=== PATIENT | male | born 1990 | race Caucasian/White ===

== ENCOUNTER 2018-01-28 22:02 | Emergency (ER) | payer SELFPAY ==
--- NOTE | 2018-01-29 01:55 | EDPHYS ---
Physician Documentation [facility] Name: Rusty Leigh Age: 28 yrs Sex: Male : 1990 Arrival Date: 01/28/2018 Time: 22:08 Bed 23 Private MD: ED Physician Sky Olivera HPI: 01/29 02:00 This 28 yrs old Male presents to ER via Ambulatory with complaints of Boil On pm1 Neck. 02:00 the patient presents with a swollen area of the right lateral aspect of neck. pm1 Description: raised. Onset: The symptoms/episode began/occurred 3 day(s) ago. Possible cause(s): unknown. Associated signs and symptoms: Pertinent negatives: discharge, drainage, fever. Modifying factors: the symptoms are alleviated by nothing, the symptoms are aggravated by nothing. Severity of symptoms: in the emergency department the symptoms are actually worse. The patient has experienced similar episodes in the past, a few times. The patient has not recently seen a physician. Historical: - Allergies: 01/28 23:02 No Known Allergies; ea - Home Meds: 23:02 None [Active]; ea - PMHx: 23:02 None; ea - PSHx: 23:02 None; ea - Immunization history:: Adult Immunizations up to date. - Ebola Screening: : No symptoms or risks identified at this time. - Social history:: Smoking status: unknown. ROS: 01/29 02:00 Constitutional: Negative for fever, chills, and weight loss, Eyes: Negative for injury, pm1 pain, redness, and discharge, ENT: Negative for injury, pain, and discharge, Neck: Negative for injury, pain, and swelling, Cardiovascular: Negative for chest pain, palpitations, and edema, Respiratory: Negative for shortness of breath, cough, wheezing, and pleuritic chest pain, Abdomen/GI: Negative for abdominal pain, nausea, vomiting, diarrhea, and constipation, Back: Negative for injury and pain, MS/Extremity: Negative for injury and deformity. Neuro: Negative for headache, weakness, numbness, tingling, and seizure. Skin: Positive for cellulitis, of the right lateral aspect of neck. Exam: 02:00 Constitutional: This is a well developed, well nourished patient who is awake, alert, pm1 and in no acute distress. Head/Face: Normocephalic, atraumatic. Eyes: Pupils equal round and reactive to light, extra-ocular motions intact. Lids and lashes normal. Conjunctiva and sclera are non-icteric and not injected. Cornea within normal limits. Periorbital areas with no swelling, redness, or edema. ENT: Nares patent. No nasal discharge, no septal abnormalities noted. Tympanic membranes are normal and external auditory canals are clear. Oropharynx with no redness, swelling, or masses, exudates, or evidence of obstruction, uvula midline. Mucous membranes moist. Neck: Trachea midline, no thyromegaly or masses palpated, and no cervical lymphadenopathy. Supple, full range of motion without nuchal rigidity, or vertebral point tenderness. No Meningismus. Chest/axilla: Normal chest wall appearance and motion. Nontender with no deformity. No lesions are appreciated. Cardiovascular: Regular rate and rhythm with a normal S1 and S2. No gallops, murmurs, or rubs. Normal PMI, no JVD. No pulse deficits. Respiratory: Lungs have equal breath sounds bilaterally, clear to auscultation and percussion. No rales, rhonchi or wheezes noted. No increased work of breathing, no retractions or nasal flaring. Abdomen/GI: Soft, non-tender, with normal bowel sounds. No distension or tympany. No guarding or rebound. No evidence of tenderness throughout. Back: No spinal tenderness. No costovertebral tenderness. Full range of motion. 02:00 Skin: Appearance: normal except for affected area, abscess, not appreciated, cellulitis, on the right lateral aspect of neck, Nickel sized area of phlegmon with central scab. Needle aspirated and no purulent drainage present. Vital Signs: 01/28 23:04 BP 127 / 98; Pulse 71; Resp 18; Temp 98.1; Pulse Ox 99% ; Weight 74.84 kg; Height 6 ft. ea 0 in. (182.88 cm); Pain 4/10; 01/29 01:09 BP 122 / 82; Pulse 51; Resp 18; Pulse Ox 100% ; tl3 01/28 23:04 Body Mass Index 22.38 (74.84 kg, 182.88 cm) ea MDM: 00:46 Patient medically screened. pm1 01:53 Data reviewed: vital signs. Data interpreted: Pulse oximetry: on room air is 100 %. pm1 Interpretation: normal. Counseling: I had a detailed discussion with the patient and/or guardian regarding: the historical points, exam findings, and any diagnostic results supporting the discharge/admit diagnosis, the need for outpatient follow up, to return to the emergency department if symptoms worsen or persist or if there are any questions or concerns that arise at home. ED course: needle aspiration of area of phlegmon without any purulent drainage. No abscess present. Administered Medications: 02:06 Drug: Tetanus-Diphtheria Toxoid Adult 0.5 ml {Hair Colorist: [employer]. Exp: rk2 04/06/2020. Lot #: [id number]. } Route: IM; Site: right deltoid; 02:14 Follow up: Given \T\ DC rk2 Disposition: 01/29/18 01:55 Discharged to Home. Impression: Cellulitis of neck. - Condition is Stable. - Discharge Instructions: Cellulitis. - Prescriptions for Bactrim DS 800- 160 mg Oral Tablet - take 1 tablet by ORAL route every 12 hours for 10 days; 20 tablet. - Medication Reconciliation Form, Thank You Letter, Antibiotic Education form. - Follow up: Emergency Department; When: As needed; Reason: Worsening of condition. Follow up: Private Physician; When: 2 - 3 days; Reason: Recheck today's complaints, Continuance of care, Re-evaluation by your physician. - Problem is new. - Symptoms have improved. Addendum: 01/31/2018 09:12 Co-signature as Attending Physician, Sky Olivera MD I agree with the assessment and c gaspar plan of care. Signatures: Sky Olivera MD MD cha Marinas, Patrick, VIGOUREUX PRINTER VIGOUREUX PRINTER pm1 Esther Kaplan RN Lori Lao ea, RN RN rk2 Tita Kent, RN RN tl3 Corrections: (The following items were deleted from the chart) 01/29 02:15 01:55 01/29/2018 01:55 Discharged to Home. Impression: Cellulitis of neck. Condition is rk2 Stable. Forms are Medication Reconciliation Form, Thank You Letter, Antibiotic Education, Prescription Opioid Use. Follow up: Emergency Department; When: As needed; Reason: Worsening of condition. Follow up: Private Physician; When: 2 - 3 days; Reason: Recheck today's complaints, Continuance of care, Re-evaluation by your physician. Problem is new. Symptoms have improved. pm1
--- NOTE | 2018-01-29 01:55 | ER ---
Nurse's Notes [facility] Name: Rusty Leigh Age: 28 yrs Sex: Male : 1990 Arrival Date: 01/28/2018 Time: 22:08 Bed 23 Private MD: Diagnosis: Cellulitis of neck Presentation: 01/28 22:59 Presenting complaint: Patient states: Patient reports boil to left side of neck that ea started a week ago. Pt reports pain and pressure to are. Transition of care: patient was not received from another setting of care. Onset of symptoms was January 28, 2018. Risk Assessment: Do you want to hurt yourself or someone else? Patient reports no desire to harm self or others. Care prior to arrival: Medication(s) given: amoxicillin. :59 Method Of Arrival: Ambulatory ea 22:59 Acuity: LIANG 3 ea 01/29 02:15 Initial Sepsis Screen: Does the patient meet any 2 criteria? No. Patient's initial rk2 sepsis screen is negative. Does the patient have a suspected source of infection? Yes:. Triage Assessment: 01/28 23:02 General: Appears in no apparent distress. Behavior is appropriate for age. Pain: ea Complains of pain in right lateral aspect of neck Pain does not radiate. Pain currently is 4 out of 10 on a pain scale. Respiratory: Airway is patent Respiratory effort is even, unlabored, Respiratory pattern is regular, symmetrical. Derm: Wound noted right lateral aspect of neck. Historical: - Allergies: 23:02 No Known Allergies; ea - Home Meds: 23:02 None [Active]; ea - PMHx: 23:02 None; ea - PSHx: 23:02 None; ea - Immunization history:: Adult Immunizations up to date. - Ebola Screening: : No symptoms or risks identified at this time. - Social history:: Smoking status: unknown. Screenin/27 01:09 Abuse screen: Denies threats or abuse. Nutritional screening: No deficits noted. tl3 Tuberculosis screening: No symptoms or risk factors identified. Fall Risk None identified. Assessment: 01:09 General: Appears in no apparent distress. comfortable, well groomed, well developed, tl3 well nourished, Behavior is calm, cooperative, appropriate for age. Pain: Complains of pain in neck and right lateral aspect of neck. Neuro: Level of Consciousness is awake, alert, obeys commands, Oriented to person, place, time, situation, Appropriate for age. Cardiovascular: Heart tones S1 S2 present Patient's skin is warm and dry. Respiratory: Breath sounds are clear bilaterally. GI: No signs and/or symptoms were reported involving the gastrointestinal system. : No signs and/or symptoms were reported regarding the genitourinary system. EENT: No signs and/or symptoms were reported regarding the EENT system. Derm: Wound noted neck and right lateral aspect of neck Wound is lesion noted, present for 5 days, pt tried to express it himself, thick black scab and peeling skin noted. Vital Signs: 01/28 23:04 BP 127 / 98; Pulse 71; Resp 18; Temp 98.1; Pulse Ox 99% ; Weight 74.84 kg; Height 6 ft. ea 0 in. (182.88 cm); Pain 4/10; 01/29 01:09 BP 122 / 82; Pulse 51; Resp 18; Pulse Ox 100% ; tl3 01/28 23:04 Body Mass Index 22.38 (74.84 kg, 182.88 cm) ea ED Course: 01/28 22:08 Patient arrived in ED. ds1 23:02 Triage completed. ea 01/29 00:46 Ariel Dalton NP is PHCP. pm1 00:46 Sky Olivera MD is Attending Physician. pm1 01:08 Tita Kent, ONEYDA is Primary Nurse. tl3 01:09 Patient has correct armband on for positive identification. Bed in low position. Call tl3 light in reach. Side rails up X 1. Adult w/ patient. Pulse ox on. NIBP on. 01:09 No provider procedures requiring assistance completed. Patient did not have IV access tl3 during this emergency room visit. 01:45 Arm band placed on. rk2 Administered Medications: 02:06 Drug: Tetanus-Diphtheria Toxoid Adult 0.5 ml {Bar Waiter/Waitress: [employer]. Exp: rk2 04/06/2020. Lot #: [id number]. } Route: IM; Site: right deltoid; 02:14 Follow up: Given \T\ DC rk2 Intake: Outcome: 01:55 Discharge ordered by . pm1 02:15 Discharged to home rk2 02:15 Condition: good 02:15 Discharge instructions given to patient, Prescriptions given X 1. 02:15 Patient left the ED. rk2 Signatures: Anne-Marie Vinson ds1 Ariel Dalton, PERSONAL CARE HOME ADMINISTRATOR PERSONAL CARE HOME ADMINISTRATOR pm1 Esther Kaplan, RN RN ea Lori Araya RN RN rk2 Tita Kent RN RN tl3
[2018-01-29] MEDS ORDERED: TETANUS & DIPHTHERIA TOX,ADULT 0.5 ML VIAL ONE (02:00)
== END 2018-01-29 02:15 | disposition home or self-care (01) ==
LOC: ER 22:02
DX: L03.221 Cellulitis of neck (principal)
CPT/HCPCS: 90714; 99283